=== PATIENT | male | born 1945 | race Hispanic/Latino ===

== ENCOUNTER 2018-02-15 22:19 | Inpatient (IN) | payer OTHER ==
[~2018-02-15] VITALS: Ht 167.6 cm; Wt 50.1 kg
[2018-02-16 00:29] LABS: BASOPHILS % (AUTO) 0.1 % (0.0-5.0); HEMATOCRIT 44.9 % (42-54); LYMPHOCYTES % (AUTO) 2.4 % (21.0-51.0); MEAN CORPUSCULAR HEMOGLOBIN 31.1 pg (27.0-33.0); MEAN CORPUSCULAR HGB CONC 33.5 g/dL (32.0-36.0); MONOCYTES % (AUTO) 4.3 % (3.0-13.0); NEUTROPHILS % (AUTO) 93.2 % (40.0-77.0); PLATELET COUNT (AUTO) 409 K/uL (130-400); RED BLOOD CELL COUNT(AUTO) 4.83 MIL/uL (4.50-6.20); RED CELL DISTRIBUTION WIDTH 13.2 % (11.0-15.5); WHITE BLOOD COUNT (AUTO) 25.9 K/uL (4.8-10.8)
[2018-02-16 00:35] LABS: APPEARANCE,URINE Cloudy (CLEAR); BILIRUBIN,URINE Negative (NEGATIVE); GLUCOSE, URINE (UA) Negative (NEGATIVE); KETONES,URINE Negative (NEGATIVE); LEUKOCYTE ESTERASE ,URINE Trace (NEGATIVE); NITRATE,URINE Negative (NEGATIVE); OCCULT BLOOD,URINE Large (NEGATIVE); PROTEIN,URINE POS 1+ (NEGATIVE); UROBILINOGEN,URINE 0.2 mg/dL (0.2-1.0)
[2018-02-16 00:37] LABS: BACTERIA,URINE Few /HPF (None Seen); COLOR,URINE BROWN (YELLOW); RBC,URINE TNTC /HPF (0-1); SQUAMOUS EPITHELIAL CELL,UR Moderate /HPF (0-2)
[2018-02-16 00:43] LABS: ALBUMIN 2.4 g/dL (3.5-5.0); BILIRUBIN,TOTAL 0.4 mg/dL (0.2-1.0)
[2018-02-16 00:52] LABS: CREATININE 16.2 mg/dL (0.5-1.5)
[2018-02-16 01:57] LABS: INR 1.06 (0.85-1.15); PARTIAL THROMBOPLASTIN TIME 30.1 SEC (26.3-35.5); PROTHROMBIN TIME 10.9 SEC (9.6-11.6)
[2018-02-16] MEDS ORDERED: ACETAMINOPHEN 325 MG TAB PO PRN ×2 (02:45→09:15)
[2018-02-16] MEDS ORDERED: FAMOTIDINE 20MG TAB 20 MG TAB PO SCH (02:45)
[2018-02-16] MEDS ORDERED: ONDANSETRON HCL 4 MG/2 ML VIAL IVP PRN (02:45)
[2018-02-16] MEDS ORDERED: HYDRALAZINE HCL 20 MG/ML VIAL IM PRN (05:30)
[2018-02-16] MEDS ORDERED: METOPROLOL TARTRATE 1 MG/ML 5ML VIAL IV PRN (05:30)
[2018-02-16] MEDS ORDERED: MEROPENEM 500MG+NS 50ML 50 ML IV SCH (06:00)
[2018-02-16] MEDS ORDERED: MEROPENEM 1 GM VIAL IVP SCH (06:15)
[2018-02-16] MEDS ORDERED: MEROPENEM 500 MG VIAL ONE (06:32)
[2018-02-16] MEDS ORDERED: DIATR MEGLU/DIATRIZOATE SODIUM 30 ML BOTTLE ONE (07:09)
[2018-02-16 08:30] VITALS: BP 152/82
[2018-02-16] MEDS ORDERED: SODIUM CHLORIDE 0.9% 10 ML VIAL IVP PRN (09:00)
[2018-02-16] MEDS ORDERED: ENOXAPARIN SODIUM 40 MG/0.4 ML SYRINGE SQ SCH (09:00)
[2018-02-16 09:13] LABS: BASOPHILS % (AUTO) 0.2 % (0.0-5.0); HEMATOCRIT 44.6 % (42-54); LYMPHOCYTES % (AUTO) 2.6 % (21.0-51.0); MEAN CORPUSCULAR HEMOGLOBIN 31.1 pg (27.0-33.0); MEAN CORPUSCULAR HGB CONC 33.5 g/dL (32.0-36.0); MEAN CORPUSCULAR VOLUME 92.8 fL (79-99); MONOCYTES % (AUTO) 4.7 % (3.0-13.0); NEUTROPHILS % (AUTO) 92.5 % (40.0-77.0); PLATELET COUNT (AUTO) 413 K/uL (130-400); RED BLOOD CELL COUNT(AUTO) 4.81 MIL/uL (4.50-6.20); RED CELL DISTRIBUTION WIDTH 13.3 % (11.0-15.5); WHITE BLOOD COUNT (AUTO) 26.6 K/uL (4.8-10.8)
[2018-02-16] MEDS ORDERED: ONDANSETRON HCL MDV 20ML 2 MG/ML VIAL IVP PRN (09:15)
[2018-02-16 09:24] LABS: POTASSIUM 4.5 mmol/L (3.5-5.1)
[2018-02-16 09:37] LABS: CREATININE 14.4 mg/dL (0.5-1.5)
[2018-02-16 11:03] VITALS: BP 116/85
[2018-02-16] MEDS: LACTATED RINGERS 1000ML 1,000 ML IV SCH ×3 (11:17→20:16)
[2018-02-16] MEDS: TAMSULOSIN HCL 0.4 MG CAP.ER.24H PO SCH (11:17)
[2018-02-16] MEDS: MEROPENEM 500 MG VIAL IVP SCH ×2 (14:23→21:27)
[2018-02-16 16:17] VITALS: BP 116/66
[2018-02-16 20:00] VITALS: BP 120/69
[2018-02-16] MEDS: SODIUM BICARBONATE 650 MG TAB PO SCH (20:15)
[2018-02-17] VITALS: BP 124/69
[2018-02-17 04:00] VITALS: BP 117/68
[2018-02-17] MEDS: MEROPENEM 500 MG VIAL IVP SCH (05:20)
[2018-02-17 06:02] LABS: BASOPHILS % (AUTO) 0.1 % (0.0-5.0); EOSINOPHILS % (AUTO) 0.2 % (0.0-8.0); HEMATOCRIT 41.9 % (42-54); LYMPHOCYTES % (AUTO) 4.4 % (21.0-51.0); MEAN CORPUSCULAR HEMOGLOBIN 31.5 pg (27.0-33.0); MEAN CORPUSCULAR VOLUME 92.8 fL (79-99); MONOCYTES % (AUTO) 5.6 % (3.0-13.0); NEUTROPHILS % (AUTO) 89.7 % (40.0-77.0); PLATELET COUNT (AUTO) 388 K/uL (130-400); RED BLOOD CELL COUNT(AUTO) 4.51 MIL/uL (4.50-6.20); WHITE BLOOD COUNT (AUTO) 18.2 K/uL (4.8-10.8)
[2018-02-17 06:16] LABS: HEMOGLOBIN A1C 5.5 % (4.0-6.0)
[2018-02-17 06:20] LABS: ALBUMIN 2.2 g/dL (3.5-5.0); BILIRUBIN,TOTAL 0.8 mg/dL (0.2-1.0); MAGNESIUM 2.7 mg/dL (1.80-2.40); PHOSPHORUS 3.6 mg/dL (2.5-4.9); TOTAL PROTEIN, SERUM 6.6 g/dL (6.0-8.3); URIC ACID 11.8 mg/dL (2.6-7.2)
[2018-02-17 06:23] LABS: POTASSIUM 2.8 mmol/L (3.5-5.1)
[2018-02-17 07:39] VITALS: BP 107/69
[2018-02-17] MEDS ORDERED: POTASSIUM CHLORIDE 10% ELIXIR 20 MEQ/15 ML UDCUP PO PRN (08:15)
[2018-02-17] MEDS ORDERED: PHARMACY COMMUNICATION MISC SCH (08:15)
[2018-02-17] MEDS ORDERED: POTASSIUM CHLORIDE 20 MEQ ERTAB PO PRN (08:15)
[2018-02-17] MEDS: FAMOTIDINE 20MG TAB 20 MG TAB PO SCH (10:36)
[2018-02-17] MEDS: TAMSULOSIN HCL 0.4 MG CAP.ER.24H PO SCH (10:36)
[2018-02-17] MEDS: CEFTRIAXONE SODIUM 1 GM IVP SCH (10:36)
[2018-02-17] MEDS: FINASTERIDE 5 MG TABLET PO SCH (10:36)
[2018-02-17] MEDS: SODIUM BICARBONATE 650 MG TAB PO SCH ×2 (10:36→20:48)
[2018-02-17] MEDS: FOLIC ACID/VITAMIN B COMP W-C 1 MG CAPSULE PO SCH (10:36)
[2018-02-17] MEDS: POTASSIUM CHLORIDE 20MEQ/100ML 100 ML IV PRN ×2 (10:37→18:20)
[2018-02-17] MEDS: LIDOCAINE HCL-MPF 1% 2ML VIAL IVP PRN ×2 (10:37→18:20)
[2018-02-17] MEDS: LACTATED RINGERS 1000ML 1,000 ML IV SCH ×2 (10:47→19:32)
[2018-02-17 11:20] VITALS: BP 106/75
[2018-02-17 16:07] VITALS: BP 114/72
[2018-02-17 20:00] VITALS: BP 91/58
[2018-02-18] VITALS: BP 92/54
[2018-02-18] MEDS: POTASSIUM CHLORIDE 20MEQ/100ML 100 ML IV PRN (01:48)
[2018-02-18] MEDS: LIDOCAINE HCL-MPF 1% 2ML VIAL IVP PRN (01:49)
[2018-02-18] MEDS: LACTATED RINGERS 1000ML 1,000 ML IV SCH ×2 (01:49→11:18)
[2018-02-18 04:00] VITALS: BP 98/58
[2018-02-18 05:33] LABS: BASOPHILS % (AUTO) 0.1 % (0.0-5.0); EOSINOPHILS % (AUTO) 0.5 % (0.0-8.0); HEMATOCRIT 38.7 % (42-54); LYMPHOCYTES % (AUTO) 9.7 % (21.0-51.0); MEAN CORPUSCULAR HEMOGLOBIN 31.8 pg (27.0-33.0); MEAN CORPUSCULAR HGB CONC 33.9 g/dL (32.0-36.0); MEAN CORPUSCULAR VOLUME 93.8 fL (79-99); MONOCYTES % (AUTO) 7.7 % (3.0-13.0); PLATELET COUNT (AUTO) 267 K/uL (130-400); RED BLOOD CELL COUNT(AUTO) 4.12 MIL/uL (4.50-6.20); WHITE BLOOD COUNT (AUTO) 12.8 K/uL (4.8-10.8)
[2018-02-18 05:47] LABS: ALBUMIN 1.9 g/dL (3.5-5.0); BILIRUBIN,TOTAL 0.5 mg/dL (0.2-1.0); CREATININE 1.2 mg/dL (0.5-1.5); POTASSIUM 3.5 mmol/L (3.5-5.1); TOTAL PROTEIN, SERUM 5.7 g/dL (6.0-8.3)
[2018-02-18 07:30] VITALS: BP 116/66
[2018-02-18] MEDS ORDERED: CEFTRIAXONE 1GM/D5W 50ML 50 ML IV SCH (09:00)
[2018-02-18 11:00] VITALS: BP 94/52
[2018-02-18] MEDS: TAMSULOSIN HCL 0.4 MG CAP.ER.24H PO SCH (11:07)
[2018-02-18] MEDS: SODIUM BICARBONATE 650 MG TAB PO SCH (11:07)
[2018-02-18] MEDS: FOLIC ACID/VITAMIN B COMP W-C 1 MG CAPSULE PO SCH (11:07)
[2018-02-18] MEDS: CEFTRIAXONE SODIUM 1 GM IVP SCH (11:07)
[2018-02-18] MEDS: FAMOTIDINE 20MG TAB 20 MG TAB PO SCH (11:08)
[2018-02-18] MEDS: FINASTERIDE 5 MG TABLET PO SCH (11:08)
[2018-02-18 16:00] VITALS: BP 106/60
[2018-02-18] MEDS ORDERED: FINA5TAB2 PO (16:20)
[2018-02-18] MEDS ORDERED: TAMS-1 PO (16:20)
[2018-02-18] MEDS ORDERED: CEPH-578 PO (16:20)
== END 2018-02-18 19:20 | disposition home or self-care (01) | DRG 872 ==
LOC: EDH 22:19 → EDHIP 22:20 → 4BH 02-16 07:59
PROVIDERS: ADMIT Family Medicine; ATTEND Family Medicine
DX: A41.9 Sepsis, unspecified organism (principal); N17.9 Acute kidney failure, unspecified; E87.0 Hyperosmolality and hypernatremia; E44.0 Moderate protein-calorie malnutrition; E87.2 Acidosis; N13.30 Unspecified hydronephrosis; N39.0 Urinary tract infection, site not specified; Z68.1 Body mass index [BMI] 19.9 or less, adult; D64.9 Anemia, unspecified; E87.6 Hypokalemia; H54.40 Blindness, one eye, unspecified eye; H54.62 Unqualified visual loss, left eye, normal vision right eye; I10 Essential (primary) hypertension; N32.89 Other specified disorders of bladder; N40.1 Benign prostatic hyperplasia with lower urinary tract symptoms; R33.8 Other retention of urine; Z59.0 Homelessness
CPT/HCPCS: 36415; 71045; 73552; 74176; 76700; 80048; 80053; 80061; 81001; 83036; 83605; 83735; 84100; 84132; 84153; 84550; 85025; 85610; 85730; 87040; 87088; 92610; 93005; 93971; A4218; J0696; J2185; J3480; J3490; J7120; Q9963

== ENCOUNTER 2018-04-16 21:28 | Emergency (ER) | payer OTHER ==
[~2018-04-16 21:28] MED LIST: CEPH-578 PO; FINA5TAB2 PO; TAMS-1 PO
== END 2018-04-16 22:03 | disposition home or self-care (01) ==
LOC: EDH 21:28
DX: Z46.6 Encounter for fitting and adjustment of urinary device (principal)
CPT/HCPCS: 51702

== ENCOUNTER 2018-05-10 08:09 | Inpatient (IN) | payer OTHER ==
[~2018-05-10] VITALS: Ht 172.7 cm; Wt 55.5 kg
[2018-05-10] VITALS (21 sets, daily range): BP systolic 111–164; BP diastolic 60–92
[2018-05-10] MEDS ORDERED: CEFTRIAXONE SODIUM 1 GM ONE (09:40)
[2018-05-10] MEDS ORDERED: SODIUM CHLORIDE 0.9% 50 ML IV ONE (09:40)
[2018-05-10 09:56] LABS: APPEARANCE,URINE Clear (CLEAR); BILIRUBIN,URINE Negative (NEGATIVE); COLOR,URINE Yellow (YELLOW); GLUCOSE, URINE (UA) Negative (NEGATIVE); KETONES,URINE Negative (NEGATIVE); LEUKOCYTE ESTERASE ,URINE Large (NEGATIVE); NITRATE,URINE Negative (NEGATIVE); OCCULT BLOOD,URINE Moderate (NEGATIVE); PH,URINE 6.5 (5.0-8.0); PROTEIN,URINE Trace (NEGATIVE); UROBILINOGEN,URINE 0.2 mg/dL (0.2-1.0)
[2018-05-10 09:57] LABS: BASOPHILS % (AUTO) 0.6 % (0.0-5.0); EOSINOPHILS % (AUTO) 2.1 % (0.0-8.0); HEMATOCRIT 41.5 % (42-54); LYMPHOCYTES % (AUTO) 25.4 % (21.0-51.0); MEAN CORPUSCULAR HEMOGLOBIN 30.8 pg (27.0-33.0); MEAN CORPUSCULAR HGB CONC 33.7 g/dL (32.0-36.0); MEAN CORPUSCULAR VOLUME 91.3 fL (79-99); MONOCYTES % (AUTO) 7.6 % (3.0-13.0); NEUTROPHILS % (AUTO) 64.3 % (40.0-77.0); NUCLEATED RED BLOOD CELLS 0.1 % (0.0-0.19); PLATELET COUNT (AUTO) 199 K/uL (130-400); RED BLOOD CELL COUNT(AUTO) 4.55 MIL/uL (4.50-6.20); RED CELL DISTRIBUTION WIDTH 13.1 % (11.0-15.5); WHITE BLOOD COUNT (AUTO) 5.3 K/uL (4.8-10.8)
[2018-05-10 10:01] LABS: CREATININE 0.8 mg/dL (0.5-1.5); POTASSIUM 3.5 mmol/L (3.5-5.1)
[2018-05-10 10:06] LABS: ALBUMIN 3.9 g/dL (3.5-5.0); BILIRUBIN,TOTAL 0.6 mg/dL (0.2-1.0); TOTAL PROTEIN, SERUM 7.6 g/dL (6.0-8.3)
[2018-05-10 10:15] LABS: BACTERIA,URINE Few /HPF (None Seen)
[2018-05-10 10:16] LABS: SQUAMOUS EPITHELIAL CELL,UR None Seen /HPF (0-2)
[2018-05-10 10:23] LABS: INR 0.94 (0.85-1.15); PARTIAL THROMBOPLASTIN TIME 26.7 SEC (26.3-35.5); PROTHROMBIN TIME 9.9 SEC (9.6-11.6)
[2018-05-10] MEDS ORDERED: PHARMACY COMMUNICATION MISC SCH (13:30)
[2018-05-10] MEDS ORDERED: COMPOUND IV REFRIGERATED 1 EACH IVSOLN MISC PRN (13:45)
[2018-05-10] MEDS: SODIUM CHLORIDE 0.9% IV SCH (14:04)
[2018-05-10] MEDS: GENTAMICIN SULFATE IV SCH (14:04)
[2018-05-10] MEDS ORDERED: PROPOFOL 10 MG/ML 20ML VIAL IV ONE (17:29)
[2018-05-10] MEDS ORDERED: FENTANYL CITRATE PF 50 MCG/1 ML 2ML VIAL ONE ×2 (17:29→19:43)
[2018-05-10] MEDS ORDERED: MIDAZOLAM HCL 1 MG/ML 2ML VIAL ONE (17:29)
[2018-05-10] MEDS ORDERED: SUCCINYLCHOLINE CHLORIDE 20 MG/ML 10 ML VIAL ONE (18:09)
[2018-05-10] MEDS ORDERED: ROCURONIUM BROMIDE 10MG/1ML 5ML VL ONE (18:09)
[2018-05-10] MEDS ORDERED: GLYCOPYRROLATE 0.2 MG/ML 5 ML VIAL ONE (19:03)
[2018-05-10] MEDS ORDERED: NEOSTIGMINE 5MG/5ML SYR IV ONE (19:03)
[2018-05-10] MEDS ORDERED: MEPERIDINE-PF 25 MG/ML SYG ONE (19:59)
[2018-05-10] MEDS ORDERED: HYDROCODONE/ACETAMINOPHEN 5/325 MG TAB PO PRN ×2 (21:30)
[2018-05-10] MEDS ORDERED: OPIUM/BELLADONNA ALKALOIDS 1 EACH SUPP.RECT RC PRN (21:30)
[2018-05-10] MEDS ORDERED: ONDANSETRON HCL 4 MG/2 ML VIAL IVP PRN (21:30)
[2018-05-10] MEDS ORDERED: LACTATED RINGERS 1000ML 1,000 ML IV SCH (21:45)
[2018-05-10] MEDS: DOCUSATE SODIUM 100 MG CAP PO SCH (22:35)
[2018-05-11] VITALS (8 sets, daily range): BP systolic 115–139; BP diastolic 58–82
[2018-05-11 05:33] LABS: MEAN CORPUSCULAR HEMOGLOBIN 32.3 pg (27.0-33.0); MEAN CORPUSCULAR HGB CONC 35.7 g/dL (32.0-36.0); MEAN CORPUSCULAR VOLUME 90.7 fL (79-99); PLATELET COUNT (AUTO) 207 K/uL (130-400); RED BLOOD CELL COUNT(AUTO) 4.08 MIL/uL (4.50-6.20); RED CELL DISTRIBUTION WIDTH 13.5 % (11.0-15.5)
[2018-05-11] MEDS: CEFTRIAXONE SODIUM 1 GM IVP SCH (09:41)
[2018-05-11] MEDS: DOCUSATE SODIUM 100 MG CAP PO SCH ×2 (09:42→21:42)
[2018-05-11] MEDS: GENTAMICIN SULFATE IV SCH (14:05)
[2018-05-11] MEDS: SODIUM CHLORIDE 0.9% IV SCH (14:05)
[2018-05-11 19:47] LABS: HEMATOCRIT 39.4 % (42-54); MEAN CORPUSCULAR HEMOGLOBIN 31.3 pg (27.0-33.0); MEAN CORPUSCULAR HGB CONC 34.5 g/dL (32.0-36.0); MEAN CORPUSCULAR VOLUME 90.8 fL (79-99); PLATELET COUNT (AUTO) 216 K/uL (130-400); RED BLOOD CELL COUNT(AUTO) 4.34 MIL/uL (4.50-6.20); RED CELL DISTRIBUTION WIDTH 13.3 % (11.0-15.5); WHITE BLOOD COUNT (AUTO) 8.3 K/uL (4.8-10.8)
[2018-05-11 20:07] LABS: ALBUMIN 3.7 g/dL (3.5-5.0); BILIRUBIN,TOTAL 0.4 mg/dL (0.2-1.0); POTASSIUM 3.8 mmol/L (3.5-5.1); TOTAL PROTEIN, SERUM 7.4 g/dL (6.0-8.3)
[2018-05-11 20:29] LABS: BAND NEUTROPHILS % (MANUAL) 2 % (0-2); LYMPHOCYTES % (MANUAL) 18 % (22-44); MAN.DIFF COMMENT-IMPRESSION MANUAL DIFFERENTIAL; METAMYELOCYTES % 1 % (0-0); MONOCYTES % (MANUAL) 10 % (2-9); SEGMENTED NEUTROPHILS % 69 % (40-70)
[2018-05-11 20:30] LABS: PLATELET MORPHOLOGY COMMENT ADEQUATE
[2018-05-11] MEDS ORDERED: PHARMACY COMMUNICATION MISC SCH (21:00)
[2018-05-11] MEDS ORDERED: M.V.I. IV [ADULT] 10 ML, THIAMINE HCL 100 MG, FOLIC ACID 1 MG in SODIUM CHLORIDE 0.9% 1... IV SCH (21:30)
[2018-05-11] MEDS: HALOPERIDOL LACTATE 5 MG/ML VIAL IV PRN (21:42)
[2018-05-12 03:29] VITALS: BP 135/77
[2018-05-12] MEDS: HALOPERIDOL LACTATE 5 MG/ML VIAL IV PRN (06:32)
[2018-05-12 07:00] VITALS: BP_SYST 131; BP_SYST 137; BP_DIAS 75; BP_DIAS 76
[2018-05-12] MEDS: CEFTRIAXONE SODIUM 1 GM IVP SCH (08:46)
[2018-05-12] MEDS: DOCUSATE SODIUM 100 MG CAP PO SCH ×2 (08:46→20:21)
[2018-05-12 11:00] VITALS: BP 129/76
[2018-05-12 15:31] VITALS: BP 130/75
[2018-05-12 19:00] VITALS: BP 127/84
[2018-05-12 23:00] VITALS: BP 122/78
[2018-05-13 03:00] VITALS: BP 130/72
[2018-05-13 05:11] LABS: HEMATOCRIT 37.6 % (42-54); MEAN CORPUSCULAR HEMOGLOBIN 32.1 pg (27.0-33.0); MEAN CORPUSCULAR HGB CONC 35.2 g/dL (32.0-36.0); MEAN CORPUSCULAR VOLUME 91.1 fL (79-99); PLATELET COUNT (AUTO) 209 K/uL (130-400); RED BLOOD CELL COUNT(AUTO) 4.13 MIL/uL (4.50-6.20); RED CELL DISTRIBUTION WIDTH 13.2 % (11.0-15.5); WHITE BLOOD COUNT (AUTO) 9.3 K/uL (4.8-10.8)
[2018-05-13 05:35] LABS: ALBUMIN 3.1 g/dL (3.5-5.0); BILIRUBIN,TOTAL 0.5 mg/dL (0.2-1.0); CREATININE 0.8 mg/dL (0.5-1.5); POTASSIUM 3.6 mmol/L (3.5-5.1); TOTAL PROTEIN, SERUM 6.7 g/dL (6.0-8.3)
[2018-05-13 08:00] VITALS: BP 122/67
[2018-05-13] MEDS: DOCUSATE SODIUM 100 MG CAP PO SCH (08:55)
[2018-05-13] MEDS: CEFTRIAXONE SODIUM 1 GM IVP SCH (08:55)
[2018-05-13 12:00] VITALS: BP 124/72
[2018-05-13] MEDS ORDERED: CEPH-578 PO (15:55)
[2018-05-13 16:00] VITALS: BP 117/63
== END 2018-05-13 19:00 | disposition home or self-care (01) | DRG 713 ==
LOC: EDH 08:09 → EDHIP 08:10 → 3AH 09:56 → 3BH 05-11 23:54
PROVIDERS: ADMIT Urology; ATTEND Urology
PROC: 0VT08ZZ Resection of Prostate, Via Natural or Artificial Opening Endoscopic (ICD-10-PCS; principal; 2018-05-10 17:55)
DX: N40.1 Benign prostatic hyperplasia with lower urinary tract symptoms (principal); N39.0 Urinary tract infection, site not specified; N17.9 Acute kidney failure, unspecified; N13.30 Unspecified hydronephrosis; N13.9 Obstructive and reflux uropathy, unspecified; F03.90 Unspecified dementia, unspecified severity, without behavioral disturbance, psychotic disturbance, mood disturbance, and anxiety; K21.9 Gastro-esophageal reflux disease without esophagitis; F17.210 Nicotine dependence, cigarettes, uncomplicated; R33.9 Retention of urine, unspecified
CPT/HCPCS: 36415; 70450; 80053; 81001; 82140; 85025; 85027; 85610; 85730; 87040; 87088; 88305; 93005; A4218; A4344; A4354; J0330; J0696; J1580; J1630; J2175; J2250; J2704; J2710; J3010; J3411; J3490; J7030; J7120

== ENCOUNTER 2020-06-27 02:42 | Inpatient (IN) | payer OTHER ==
[~2020-06-27] VITALS: Ht 167.6 cm; Wt 57.5 kg
[2020-06-27 03:30] LABS: BASOPHILS % (AUTO) 0.5 % (0.0-5.0); EOSINOPHILS % (AUTO) 2.9 % (0.0-8.0); HEMATOCRIT 37.1 % (42-54); LYMPHOCYTES % (AUTO) 40.3 % (21.0-51.0); MEAN CORPUSCULAR HEMOGLOBIN 31.4 pg (27.0-33.0); MEAN CORPUSCULAR HGB CONC 34.2 g/dL (32.0-36.0); MEAN CORPUSCULAR VOLUME 91.8 fL (79-99); MONOCYTES % (AUTO) 7.6 % (3.0-13.0); NEUTROPHILS % (AUTO) 48.2 % (40.0-77.0); PLATELET COUNT (AUTO) 206 K/uL (130-400); RED BLOOD CELL COUNT(AUTO) 4.04 MIL/uL (4.50-6.20); RED CELL DISTRIBUTION WIDTH 12.2 % (11.0-15.5); WHITE BLOOD COUNT (AUTO) 5.8 K/uL (4.8-10.8)
[2020-06-27 03:46] LABS: ALANINE AMINOTRANSFERASE 18 U/L (12-78); ALBUMIN 3.6 g/dL (3.5-5.0); ASPARTATE AMINOTRANSFERASE 15 U/L (10-37); BILIRUBIN,TOTAL 0.4 mg/dL (0.2-1.0); CARBON DIOXIDE 24 mmol/L (21-32); CHLORIDE 100 mmol/L (101-111); CREATININE 0.8 mg/dL (0.5-1.5); GLOMERULAR FILTR. RATE CALC 100 mL/min (>60); GLUCOSE,RANDOM 101 mg/dL (70-105); SODIUM SERUM 136 mmol/L (136-145); TOTAL PROTEIN, SERUM 7.1 g/dL (6.0-8.3); UREA NITROGEN, BLOOD 16 mg/dL (7-18)
[2020-06-27 03:47] LABS: ACETAMINOPHEN < 1 mcg/mL (10-29); SALICYLATE < 2.8 mg/dL (2.8-20.0)
[2020-06-27 03:49] LABS: ALCOHOL, BLOOD 312 mg/dL (0-10); POTASSIUM 2.8 mmol/L (3.5-5.1)
[2020-06-27] MEDS ORDERED: POTASSIUM BICARB/CIT AC 25 MEQ TABLET.EFF ONE (03:57)
[2020-06-27] MEDS ORDERED: POTASSIUM CHLORIDE 20MEQ/100ML 200 ML IV ONE (04:37)
[2020-06-27] MEDS ORDERED: NITROGLYCERIN 0.4 MG SL TAB SL PRN (05:00)
[2020-06-27] MEDS ORDERED: GUAIFENESIN-DM 200/20 MG 10 ML PO PRN (05:00)
[2020-06-27] MEDS ORDERED: DiphenhydrAMINE HCL 50 MG/ML VIAL IV PRN (05:00)
[2020-06-27] MEDS ORDERED: LACTULOSE 20 GM/30 ML UDCUP PO PRN (05:00)
[2020-06-27] MEDS ORDERED: DIPHENHYDRAMINE HCL 25 MG CAPSULE PO PRN (05:00)
[2020-06-27] MEDS ORDERED: ACETAMINOPHEN 325 MG TAB PO PRN ×2 (05:00)
[2020-06-27] MEDS ORDERED: MAG HYDROX/AL HYDROX/SIMETH ES 30 ML SUSP UDCUP PO PRN (05:00)
[2020-06-27] MEDS ORDERED: ZOLPIDEM TARTRATE 5 MG TAB PO PRN (05:00)
[2020-06-27] MEDS ORDERED: ONDANSETRON HCL 4 MG/2 ML VIAL IV PRN ×2 (05:00→10:15)
[2020-06-27 05:15] LABS: APPEARANCE,URINE Clear (CLEAR); BILIRUBIN,URINE Negative (NEGATIVE); COLOR,URINE Yellow (YELLOW); GLUCOSE, URINE (UA) Negative (NEGATIVE); KETONES,URINE Negative (NEGATIVE); LEUKOCYTE ESTERASE ,URINE Negative (NEGATIVE); NITRATE,URINE Negative (NEGATIVE); OCCULT BLOOD,URINE Moderate (NEGATIVE); PROTEIN,URINE Negative (NEGATIVE); UROBILINOGEN,URINE 0.2 mg/dL (0.2-1.0)
[2020-06-27] MEDS ORDERED: POTASSIUM CHLORIDE 10% ELIXIR 20 MEQ/15 ML UDCUP PO PRN (05:15)
[2020-06-27] MEDS ORDERED: LIDOCAINE HCL-MPF 1% 2ML VIAL IV PRN (05:15)
[2020-06-27] MEDS ORDERED: POTASSIUM CHLORIDE 20MEQ/100ML 100 ML IV PRN (05:15)
[2020-06-27] MEDS: LACTATED RINGERS 1000ML 1,000 ML IV SCH ×2 (05:15→11:08)
[2020-06-27 05:22] LABS: AMPHET/METH SCREEN,URINE NEGATIVE (NEGATIVE); BACTERIA,URINE None Seen /HPF (None Seen); BARBITURATE SCREEN, URINE NEGATIVE (NEGATIVE); BENZODIAZEPINES SCREEN,URINE NEGATIVE (NEGATIVE); CANNABINOID SCREEN,URINE NEGATIVE (NEGATIVE); COCAINE SCREEN,URINE NEGATIVE (NEGATIVE); OPIATE SCREEN,URINE NEGATIVE (NEGATIVE); PHENCYCLIDINE SCREEN,URINE NEGATIVE (NEGATIVE); RBC,URINE 0-1 /HPF (0-1); SQUAMOUS EPITHELIAL CELL,UR Rare /HPF (0-2); WBC,URINE None Seen /HPF (0-1)
[2020-06-27] MEDS ORDERED: MAGNESIUM 2GM PREMIX 50ML 50 ML IV SCH (05:30)
[2020-06-27] MEDS: M.V.I. IV [ADULT] 10 ML, FOLIC ACID 1 MG, THIAMINE HCL 100 MG in SODIUM CHLORIDE 0.9% 1... IV SCH (09:00)
[2020-06-27] MEDS: FAMOTIDINE/PF 20 MG/2 ML VIAL IV SCH ×2 (09:00→20:22)
[2020-06-27] MEDS ORDERED: PHARMACY COMMUNICATION MISC PRN (10:15)
[2020-06-27] MEDS ORDERED: PROMETHAZINE HCL 25 MG TABLET PO PRN (10:15)
[2020-06-27] MEDS ORDERED: CHLORDIAZEPOXIDE HCL 25 MG CAP PO PRN (10:15)
[2020-06-27] MEDS ORDERED: LORAZEPAM 2 MG/ML 1 ML VIAL IVP PRN (10:15)
[2020-06-27] MEDS ORDERED: LORAZEPAM 2 MG/ML 1 ML VIAL ONE (10:17)
[2020-06-27 11:12] LABS: MAGNESIUM 2.2 mg/dL (1.80-2.40); POTASSIUM 3.9 mmol/L (3.5-5.1)
[2020-06-27 13:00] VITALS: BP 159/72
[2020-06-27 16:00] VITALS: BP 176/72
[2020-06-27] MEDS: TAMSULOSIN HCL 0.4 MG CAP.ER.24H PO SCH (16:43)
[2020-06-27 20:33] VITALS: BP 159/81
[2020-06-27] MEDS ORDERED: FINASTERIDE 5 MG TABLET PO SCH (21:00)
--- NOTE | 2020-06-27 22:40 | NUR ---
PATIENT RESTLESS AND FIDGETY SINCE BEGINNING OF SHIFT. HE OFTEN ATTEMPTS TO VOID, BUT ONLY VOIDS SMALL AMOUNTS OF URINE. BLADDER DISTENDED, PATIENT VOICES DISCOMFORT UPON BLADDER PALPATION. BLADDER SCAN NOTES 829ML. DR. SALVATORE MEYER, PENDING CALL BACK.
--- NOTE | 2020-06-27 23:40 | NUR ---
PATIENT CONTINUES WITH PERSISTENT DYSURIA. STATES HE HAS HAD F/C IN THE PAST DUE TO SAME REASON. [facility] WAS CALLED AND INFORMED, NEW ORDER GIVEN TO INSERT F/C. 16FR F/C INSERTED USING STERILE TECHNIQUE WITHOUT DIFFICULTY, OBTAINED 850ML OF YELLOW COLORED URINE WITH SEDIMENT. PATIENT STATES FEELS BETTER AND QUICKLY FELL ASLEEP. WILL CONTINUE TO MONITOR.
[2020-06-28 00:25] VITALS: BP 141/78
[2020-06-28 03:48] VITALS: BP 123/72
[2020-06-28 03:48] LABS: BASOPHILS % (AUTO) 0.4 % (0.0-5.0); EOSINOPHILS % (AUTO) 0.4 % (0.0-8.0); HEMATOCRIT 37.1 % (42-54); LYMPHOCYTES % (AUTO) 16.6 % (21.0-51.0); MEAN CORPUSCULAR HEMOGLOBIN 31.3 pg (27.0-33.0); MEAN CORPUSCULAR VOLUME 92.1 fL (79-99); MONOCYTES % (AUTO) 7.7 % (3.0-13.0); NEUTROPHILS % (AUTO) 74.6 % (40.0-77.0); PLATELET COUNT (AUTO) 203 K/uL (130-400); RED BLOOD CELL COUNT(AUTO) 4.03 MIL/uL (4.50-6.20); RED CELL DISTRIBUTION WIDTH 12.3 % (11.0-15.5); WHITE BLOOD COUNT (AUTO) 6.9 K/uL (4.8-10.8)
[2020-06-28 04:04] LABS: BILIRUBIN,TOTAL 1.1 mg/dL (0.2-1.0); CREATININE 0.7 mg/dL (0.5-1.5); MAGNESIUM 2.3 mg/dL (1.80-2.40); PHOSPHORUS 3.5 mg/dL (2.5-4.9); POTASSIUM 3.4 mmol/L (3.5-5.1); TOTAL PROTEIN, SERUM 6.3 g/dL (6.0-8.3)
[2020-06-28] MEDS: POTASSIUM CHLORIDE 20 MEQ ERTAB PO PRN ×2 (06:44→09:35)
--- NOTE | 2020-06-28 06:45 | NUR ---
PATIENT FELL ASLEEP AFTER F/C INSERTION AND SLEPT THROUGHOUT THE SHIFT UNTIL NOW. HE WAS SEEN WITH BLOOD ON HIS SHEETS. HE ACKNOWLEDGES PULLING F/C OUT AND STATES HE ALSO PULLED IT OUT THE LAST TIME HE HAD A F/C WELL. WILL MONITOR PATIENT TO SEE IF HE CAN VOID ON HIS OWN.
[2020-06-28 07:19] VITALS: BP 131/49
[2020-06-28] MEDS: M.V.I. IV [ADULT] 10 ML, FOLIC ACID 1 MG, THIAMINE HCL 100 MG in SODIUM CHLORIDE 0.9% 1... IV SCH (09:00)
[2020-06-28] MEDS: TAMSULOSIN HCL 0.4 MG CAP.ER.24H PO SCH (09:00)
[2020-06-28] MEDS ORDERED: MULTIVITAMIN TABLET PO SCH (09:00)
[2020-06-28] MEDS: FAMOTIDINE/PF 20 MG/2 ML VIAL IV SCH (09:01)
[2020-06-28 10:36] VITALS: BP 122/56
[2020-06-28] MEDS ORDERED: TAMS-1 PO (12:08)
[2020-06-28] MEDS ORDERED: FINA5TAB41 PO (12:08)
--- NOTE | 2020-06-28 12:11 | NUR ---
INITIAL SW spoke to patient's ex spouse, Daniela Biggs and son, Bebeto Biggs. Patient lives alone and has not been in communication with family for years. As per son, they have tried to help patient to stop drinking but patient will be fine for a few weeks and then will leave and continue with drinking. He has no home services or DME that family is aware. Patient has no PCP or pharmacy of choice. Son states that he will come and rock pick[employer] family and will try again to help patient to stop drinking and offer support. DCP is home with family. MD made aware. Patient will be discharged today. Addendum: 06/28/20 at 1216 by LOBO PIRES Amended: Links added.
--- NOTE | 2020-06-28 12:16 | NUR ---
EMERGENCY CONTACTS Bebeto Biggs (son) - [phone] Daniela Biggs (exwife) - [phone]
== END 2020-06-28 16:00 | disposition home or self-care (01) | DRG 641 ==
LOC: EDH 02:42 → EEVIPCON 02:43 → EDHIP 02:43 → DAHIP 12:38 → 4DH 06-28 11:35
PROVIDERS: ADMIT Internal Medicine; ATTEND Internal Medicine
DX: E87.6 Hypokalemia (principal); N40.1 Benign prostatic hyperplasia with lower urinary tract symptoms; K21.9 Gastro-esophageal reflux disease without esophagitis; Z60.2 Problems related to living alone; F10.20 Alcohol dependence, uncomplicated; R33.8 Other retention of urine; W19.XXXA Unspecified fall, initial encounter; Y93.89 Activity, other specified; Y92.89 Other specified places as the place of occurrence of the external cause; Y99.8 Other external cause status; Z59.0 Homelessness
CPT/HCPCS: 36415; 70450; 71045; 72125; 72170; 80053; 80305; 81001; 83735; 84100; 84132; 84484; 85025; 93005; G0378; G0481; J1200; J2060; J3411; J3480; J3490; J7030